=== PATIENT | female | born 1980 | race Caucasian/White ===

== ENCOUNTER 2018-02-10 14:16 | Inpatient (IN) | payer SELFPAY ==
[~2018-02-10] VITALS: Ht 170.2 cm; Wt 91.9 kg
[2018-02-10 14:43] LABS: BASOPHILS # (AUTO) 0.1 (0.0-0.1); BASOPHILS % 0.3 % (0.0-1.0); EOSINOPHILS # (AUTO) 0.4 (0.0-0.4); EOSINOPHILS % 2.1 % (0.0-6.0); HEMATOCRIT 42.4 % (34.2-44.1); HEMOGLOBIN 14.4 g/dL (12.0-16.0); LYMPHOCYTES % 14.8 % (18.0-39.1); MEAN CORPUSCULAR HEMOGLOBIN 29.9 pg (28-32); MONOCYTES # (AUTO) 1.8 (0.2-0.8); MONOCYTES % 8.8 % (4.4-11.3); NEUTROPHILS # (AUTO) 14.9 (2.1-6.9); NEUTROPHILS % 73.4 % (38.7-80.0); PLATELET COUNT 544 x10e3/uL (140-360); RED BLOOD COUNT 4.82 x10e6/uL (3.6-5.1); RED CELL DISTRIBUTION WIDTH 13.3 % (11.7-14.4)
[2018-02-10 15:04] LABS: ALANINE AMINOTRANSFERASE 20 IU/L (0-55); ALBUMIN 3.8 g/dL (3.5-5.0); ALBUMIN/GLOBULIN RATIO 0.9 (0.8-2.0); ALKALINE PHOSPHATASE 131 IU/L (40-150); ANION GAP 15.2 mmol/L (8-16); BLOOD UREA NITROGEN 7 mg/dL (7-26); BUN/CREATININE RATIO 9 (6-25); CARBON DIOXIDE 23 mmol/L (22-29); CHLORIDE 104 mmol/L (98-107); CREATININE, SERUM 0.76 mg/dL (0.57-1.11); EST GLOMERULAR FILTRATION RATE > 60 ML/MIN (60-); GLUCOSE 93 mg/dL (74-118); POTASSIUM 4.2 mmol/L (3.5-5.1); SODIUM 138 mmol/L (136-145)
[2018-02-10] MEDS ORDERED: HYDROMORPHONE 1MG/1ML INJ IV STA (16:06)
[2018-02-10] MEDS ORDERED: ONDANSETRON HCL INJ 2 MG/ML VIAL IV ONE (16:14)
[2018-02-10] MEDS ORDERED: HYDROMORPHONE 1MG/1ML INJ IV ONE (16:15)
[2018-02-10] MEDS ORDERED: LIDOCAINE HCL 1% LOCAL INJ 20 ML VIAL INJ ONE ×2 (16:15)
[2018-02-10] MEDS ORDERED: ONDANSETRON HCL INJ 2 MG/ML VIAL ONE (16:17)
[2018-02-10 16:51] LABS: EOSINOPHILS % (MANUAL) 1 % (0-7); LYMPHOCYTES % (MANUAL) 13 % (19-48); MONOCYTES % (MANUAL) 8 % (3.4-9.0); NEUTROPHILS % (MANUAL) 78 % (40-74); PLATELET ESTIMATE MODERATELY INCREASED; RBC MORPHOLOGY COMMENT NORMAL
[2018-02-10] MEDS: VANCOMYCIN 1GM/NS 250 ML 250 ML IV SCH (18:15)
[2018-02-11] VITALS (8 sets, daily range): BP systolic 116–153; BP diastolic 73–97
[2018-02-11] MEDS: ONDANSETRON HCL INJ 2 MG/ML VIAL IV PRN
[2018-02-11] MEDS: VANCOMYCIN 1GM/NS 250 ML 250 ML IV SCH ×2 (04:31→17:02)
[2018-02-11 07:18] LABS: BASOPHILS # (AUTO) 0.1 (0.0-0.1); BASOPHILS % 0.4 % (0.0-1.0); EOSINOPHILS # (AUTO) 0.7 (0.0-0.4); EOSINOPHILS % 3.4 % (0.0-6.0); HEMATOCRIT 35.7 % (34.2-44.1); LYMPHOCYTES # (AUTO) 4.8 (1.0-3.2); LYMPHOCYTES % 22.8 % (18.0-39.1); MEAN CORPUSCULAR HEMOGLOBIN 29.9 pg (28-32); MEAN CORPUSCULAR HGB CONC 33.6 g/dL (31-35); MEAN CORPUSCULAR VOLUME 88.8 fL (81-99); MONOCYTES # (AUTO) 1.9 (0.2-0.8); MONOCYTES % 8.9 % (4.4-11.3); NEUTROPHILS # (AUTO) 13.3 (2.1-6.9); PLATELET COUNT 455 x10e3/uL (140-360); RED BLOOD COUNT 4.02 x10e6/uL (3.6-5.1); RED CELL DISTRIBUTION WIDTH 13.3 % (11.7-14.4)
[2018-02-11 07:44] LABS: ANION GAP 10.7 mmol/L (8-16); BLOOD UREA NITROGEN 6 mg/dL (7-26); BUN/CREATININE RATIO 9 (6-25); CALCIUM 8.8 mg/dL (8.4-10.2); CARBON DIOXIDE 24 mmol/L (22-29); CHLORIDE 108 mmol/L (98-107); CREATININE, SERUM 0.66 mg/dL (0.57-1.11); EST GLOMERULAR FILTRATION RATE > 60 ML/MIN (60-); GLUCOSE 95 mg/dL (74-118); POTASSIUM 3.7 mmol/L (3.5-5.1); SODIUM 139 mmol/L (136-145)
--- NOTE | 2018-02-11 18:31 | History and Physical ---
The patient came into the hospital with 3 days of tenderness and pain in the thigh. The patient started with a small furuncle that got deep, and the patient started to have pain in that area and started with loculation and extreme tenderness, and the patient was supposed to come in and see me in the morning, and did not make it. The pain was excruciating, and the patient came to the emergency room and was found to have left thigh abscess and incision and drainage was done. The patient was admitted to the hospital for the same. PAST MEDICAL HISTORY: No medical history. PAST SURGICAL HISTORY: No surgical history. ALLERGIES: PENICILLIN. REVIEW OF SYSTEMS: Positive for fever and chills. No sore throat. No chest pain. No nausea, no vomiting, no diarrhea, no constipation, no rectal bleeding, no hematochezia, no hematemesis either. No diplopia and no blurry vision and no neurological changes. PHYSICAL EXAMINATION GENERAL: The patient is alert and oriented x3. VITAL SIGNS: Stable. HEENT: Normocephalic, atraumatic. Pupils react to light and accommodation. CVS: S1 and S2 normal. Regular rate and rhythm. ABDOMEN: Nontender, nondistended. EXTREMITIES: No cyanosis, clubbing or edema. The left inner thigh with an abscess, status post drainage with packing material. Serosanguineous drainage present. No pustule drainage at this time. Slight amount of induration and tenderness present in the left thigh. LABORATORY DATA: White count is 20,000. Platelets 544,000 and chemistries lactic acid was negative. Wound culture is pending. ASSESSMENT: Cellulitis of the left thigh, abscess of the left thigh, leukocytosis. PLAN: The patient has been started on vancomycin. Also, the patient has been started on morphine and Zofran for nausea. I will go ahead and keep her in the hospital pending cultures. Also, we are going ahead and check the peak and trough from 3rd dose. Further recommendations depending on clinical course. Pain control has been obtained at this time. Will keep a close eye on the wound. Job#: [id number]
[2018-02-11] MEDS: MORPHINE SULFATE 2 MG/ML SYR IV PRN ×2 (23:56)
[2018-02-12] VITALS (9 sets, daily range): BP systolic 112–158; BP diastolic 63–101
[2018-02-12] MEDS: VANCOMYCIN 1GM/NS 250 ML 250 ML IV SCH ×2 (05:54→17:33)
[2018-02-12] MEDS: MORPHINE SULFATE 2 MG/ML SYR IV PRN ×2 (12:30→22:51)
[2018-02-12] MEDS: ONDANSETRON HCL INJ 2 MG/ML VIAL IV PRN (12:30)
[2018-02-12] MEDS ORDERED: HYDRALAZINE HCL 10 MG TAB PO PRN (13:00)
[2018-02-13 04:00] VITALS: BP 110/67
[2018-02-13] MEDS: VANCOMYCIN 1GM/NS 250 ML 250 ML IV SCH (05:00)
[2018-02-13 07:05] VITALS: BP 124/72
[2018-02-13 07:30] VITALS: BP 124/72
[2018-02-13 08:01] LABS: BASOPHILS # (AUTO) 0.1 (0.0-0.1); BASOPHILS % 0.8 % (0.0-1.0); EOSINOPHILS # (AUTO) 0.7 (0.0-0.4); EOSINOPHILS % 5.6 % (0.0-6.0); HEMATOCRIT 36.6 % (34.2-44.1); HEMOGLOBIN 12.1 g/dL (12.0-16.0); LYMPHOCYTES # (AUTO) 4.6 (1.0-3.2); LYMPHOCYTES % 34.5 % (18.0-39.1); MEAN CORPUSCULAR HEMOGLOBIN 29.5 pg (28-32); MEAN CORPUSCULAR HGB CONC 33.1 g/dL (31-35); MEAN CORPUSCULAR VOLUME 89.3 fL (81-99); MONOCYTES # (AUTO) 1.2 (0.2-0.8); MONOCYTES % 8.7 % (4.4-11.3); NEUTROPHILS # (AUTO) 6.6 (2.1-6.9); NEUTROPHILS % 49.9 % (38.7-80.0); PLATELET COUNT 499 x10e3/uL (140-360); RED CELL DISTRIBUTION WIDTH 13.2 % (11.7-14.4)
[2018-02-13] MEDS ORDERED: METOPROLOL SUCCINATE 25 MG TAB XL PO SCH (09:00)
[2018-02-13 11:23] VITALS: BP 154/87
[2018-02-13] MEDS ORDERED: CLINDAMYCIN HC150 MG PO (13:55)
[2018-02-13] MEDS ORDERED: IBUPROFEN400 MG PO (13:56)
--- NOTE | 2018-02-13 14:41 | Discharge Summary ---
Ms. Milly Patricio was admitted with left thigh abscess. She was started on IV antibiotics and on morphine and Zofran for nausea. She underwent incision and drainage. During the course of admission, she remained vitally stable. On the day of discharge, she was afebrile. Her pulse was 86, respiratory rate 18, blood pressure 150/87. She was awake, alert and oriented times 3. Did not complain of chest pain, headache or shortness of breath. She had on the left thigh a wound from which packing had been removed and a clean dressing was placed. She was taught how to change her dressing. She was considered stable to go home. DISCHARGE DIAGNOSES 1. Left thigh abscess. 2. Cellulitis of the left thigh. 3. Leukocytosis, which has improved during the course of admission. She did have elevated platelets, which were considered to be reactive; however, the patient was requested to follow up with primary care in 1 week with a CBC to follow up her elevated platelets. Her wound culture came back negative and just had skin faye. Her blood cultures were negative. She was requested to go home on clindamycin for another 10 days and return to PCP clinic in 1 week with a CBC. BROCK COWAN M.D. Job#: [id number]
== END 2018-02-13 15:17 | disposition home or self-care (01) | DRG 603 ==
LOC: ER 14:16 → ERHOLD 16:59 → MED/SURG3 21:18
PROVIDERS: ADMIT Family Medicine; ATTEND Family Medicine
PROC: 0J9M0ZX Drainage of Left Upper Leg Subcutaneous Tissue and Fascia, Open Approach, Diagnostic (ICD-10-PCS; principal; 2018-02-10)
DX: L02.416 Cutaneous abscess of left lower limb (principal); D72.829 Elevated white blood cell count, unspecified; L03.116 Cellulitis of left lower limb
CPT/HCPCS: 36415; 80048; 80053; 80202; 83605; 84702; 85025; 87040; 87071; 87205; 96367; 99285; J1170; J2001; J2270; J2405; J3370

== ENCOUNTER 2019-01-31 22:06 | Emergency (ER) | payer MEDICARE, OTHER ==
[~2019-01-31] VITALS: Ht 170.2 cm; Wt 85.7 kg
[~2019-01-31 22:06] MED LIST: CLINDAMYCIN HC150 MG PO; IBUPROFEN400 MG PO
--- OUTSIDE RECORDS SUMMARY | 2019-01-31 22:08 | XMS REPORT ---
Author Author Admin, [place] Organization [facility] Address [address] [address] Phone Allergies, Adverse Reactions, Alerts Allergy Name Reaction Description Start Date Severity Status Provider AMOXICILLIN Critical Active Chago Cook MD Conditions or Problems Problem Name Problem Code Onset Date Status Entry Date Provider Comment Standard Description Annotate Anxiety disorder 300.00 Active Chago Cook MD Anxiety state, unspecified Hypertension 401.1 Active Chago Cook MD Benign essential hypertension Leukocytosis 288.60 Active Chago Cook MD Leukocytosis, unspecified Thrombocytosis 238.71 Active Chago Cook MD Essential thrombocythemia Vaccination Against Influenza V04.81 Active Chago Cook MD Need for prophylactic vaccination and inoculation against influenza Medication List Medication Instructions Start Date Stop Date Generic Name NDC Status Provider Patient Instruction ATENOLOL 25 MG ORAL TABLET 1 by mouth every day ATENOLOL 51028941023 Active Chago Cook MD Active Immunizations Vaccine Administration Date Value Standard Description influenza immunization (Flu Vax) has been administered given influenza virus vaccine, unspecified formulation Vital Signs Date Name Value Unit Range Description blood pressure, diastolic 87 mm[Hg] BP sanches blood pressure, systolic 120 mm[Hg] BP sys height E&M 67 [in_us] Bdy height pulse rate E&M 94 /min Heart rate respiratory rate E&M 18 /min Resp rate temperature E&M 98.1 [degF] Body temperature weight E&M 191.25 [lb_av] Weight Measured Diagnostic Results Date Name Value Unit Range Description Lab Report: CBC With Differential/Platelet - Hematology hematocrit, blood 38.3 % 34.0-46.6 Lab Report: CBC With Differential/Platelet - Chemistry Absolute Neutrophils 8.1 X10E3/UL 10*3/uL 1.4-7.0 Lab Report: CBC With Differential/Platelet - Hematology lymphocytes as percent of blood leukocytes 29 % Not Estab. neutrophils as percent of blood leukocytes 60 % Not Estab. mean corpuscular volume, RBC 89 fL 79-97 basophils as percent of blood leukocytes 1 % Not Estab. basophil count, absolute 0.1 x10E3/uL 0.0-0.2 monocytes as percent of blood leukocytes 6 % Not Estab. Eosinophil Absolute Count 0.5 X10E3/UL 10*3/uL 0.0-0.4 eosinophils as percent of blood leukocytes 4 % Not Estab. mean corpuscular hemoglobin, RBC 28.1 pg 26.6-33.0 red blood cell distribution width 14.9 % 12.3-15.4 mean corpuscular hemoglobin concentration, RBC 31.6 G/DL % 31.5-35.7 leukocyte count, blood 13.3 X10E3/UL 10*3/mm3 3.4-10.8 monocyte count, blood, automated 0.8 X10E3/UL 10*3/uL 0.1-0.9 erythrocyte (RBC) count 4.30 X10E6/UL 10*6/mm3 3.77-5.28 Lab Report: CBC With Differential/Platelet - Chemistry immature granulocytes, percentage of total cells, blood 0 % Not Estab. Lab Report: CBC With Differential/Platelet - Hematology platelet count 571 X10E3/UL 10*3/mm3 002-654 0776/10/10 lymphocyte count, blood, automated 3.8 X10E3/UL 10*3/mm3 0.7-3.1 hemoglobin, blood 12.1 g/dL 11.1-15.9 Encounters Date Encounter Provider Code Facility 14:11:23 CDT New Patient Comprehensive - [id number] Chago Cook MD CPT-03815 [facility] Practice Procedures Code Procedure Name Date Entry Date Standard Description CPT-54427 INFLUENZA VACCINE QUADRIVALENT 3 YRS PLUS IM 14:09:10 CDT [id number] Admin of Vaccine - Injection - 1 14:09:10 CDT
[2019-01-31] MEDS ORDERED: KETOROLAC TROMETHAMINE 60 MG/2 ML VIAL IM ONE (22:45)
[2019-01-31] MEDS ORDERED: LIDOCAINE 5% PATCH TP ONE (22:45)
[2019-02-01] MEDS ORDERED: KETOROLAC TROMETHAMINE 60 MG/2 ML VIAL ONE (03:02)
[2019-02-01] MEDS ORDERED: LIDOCAINE 5% PATCH TP ONE (03:03)
[2019-02-01 03:14] VITALS: BP 140/105
--- NOTE | 2019-02-01 04:46 | Diagnostic Imaging Report ---
EXAMINATION: CHEST SINGLE (PORTABLE) INDICATION: Midsternal chest pain COMPARISON: None FINDINGS: AP view TUBES and LINES: None. LUNGS: Lungs are well inflated. Lungs are clear. There is no evidence of pneumonia or pulmonary edema. PLEURA: No pleural effusion or pneumothorax. HEART AND MEDIASTINUM: The cardiomediastinal silhouette is unremarkable. BONES AND SOFT TISSUES: No acute osseous lesion. Soft tissues are unremarkable. UPPER ABDOMEN: No free air under the diaphragm. IMPRESSION: No acute thoracic abnormality. Signed by: DR. Miguel Mehta MD on 02/01/2019 4:43 AM
== END 2019-02-01 03:20 | disposition home or self-care (01) ==
LOC: ER 22:06
DX: R07.89 Other chest pain (principal); M94.0 Chondrocostal junction syndrome [Tietze]; F17.210 Nicotine dependence, cigarettes, uncomplicated
CPT/HCPCS: 71045; 93005; 96372; 99282; J1885